=== PATIENT | male | born 1945 | race Caucasian/White ===

== ENCOUNTER → 2019-12-27 | Outpatient (CLI) | payer MEDICARE, OTHER ==
[~2019-12-27] MED LIST: ACET325 PO; ACTIVE-Q200 MG; ALBU90OI61 INH; ASPI325 PO; Budeprion Xl300 MG; Byetta10 MCG/0.0 SQ; CHOL10002; CLOBET30L TOP; CYCL10 PO; Celexa40 MG PO; Daily Multiple1 EACH PO; GLIM4; INSULANPEN SC; METF500C PO; Micardis Hct 81 EAC1 PO; SIMV40 PO; Simvastatin40 MG PO; TELM80
[2019-12-27 09:00] LABS: BASOPHILS ABSOLUTE AUTO 0.07 K/mm3 (0.00-0.23); BASOPHILS PERCENT AUTO 1 % (0-2); EOSINOPHILS ABSOLUTE AUTO 0.26 K/mm3 (0.00-0.68); EOSINOPHILS PERCENT AUTO 2 % (0-6); Hematocrit 38.9 % (37.0-53.0); Hemoglobin 13.3 g/dL (13.5-17.5); IMMATURE GRAN ABSOLUTE AUTO 0.14 K/mm3 (0.00-0.10); IMMATURE GRAN PERCENT AUTO 1 % (0-1); LYMPHOCYTES ABSOLUTE AUTO 2.16 K/mm3 (0.84-5.20); LYMPHOCYTES PERCENT AUTO 18 % (21-46); MONOCYTES ABSOLUTE AUTO 0.83 K/mm3 (0.16-1.47); MONOCYTES PERCENT AUTO 7 % (4-13); Mean Corpuscular HGB 31.7 pg (26.0-34.0); Mean Corpuscular HGB Conc 34.2 g/dL (31.5-36.5); Mean Corpuscular Volume 93 fL (80-100); Mean Platelet Volume 10.6 fL (9.1-12.4); NEUTROPHILS PERCENT AUTO 72 % (41-73); Platelet Count 271 K/mm3 (150-400); RDW Coefficient Variation 13.1 % (11.7-14.2); White Blood Cell Count 12.26 K/mm3 (4.00-11.30)
[2019-12-27 09:12] LABS: Alanine Aminotransfer (ALT/SGP 27 U/L (12-78); Albumin, Blood 3.8 g/dL (3.4-5.0); Albumin/Globulin Ratio 0.9 (0.8-1.8); Alk Phos 70 U/L (40-126); Anion Gap 10 mmol/L (6-16); Aspartate Aminotrans (AST/SGOT 17 U/L (12-37); Bilirubin, Total 0.5 mg/dL (0.1-1.0); Blood Urea Nitrogen 20 mg/dL (8-24); Bun/Creatinine Ratio 12.7 (12.0-20.0); CO2, Blood 30 mmol/L (21-32); Calcium, Blood 8.8 mg/dL (8.5-10.1); Chloride, Blood 100 mmol/L (98-108); Creatinine, Blood 1.58 mg/dL (0.60-1.20); Globulin, Blood 4.4 g/dL (2.2-4.0); Glomerular Filtration Rate 43 (60-); Glucose, Blood 189 mg/dL (70-99); Potassium, Blood 3.9 mmol/L (3.5-5.5); Sodium, Blood 140 mmol/L (136-145); Total Protein, Blood 8.2 g/dL (6.4-8.2)
[2019-12-27 09:13] LABS: Troponin I <0.017 ng/mL (0.000-0.040)
== END | disposition home or self-care (01) ==
LOC: LAB SHORT 08:54 → LAB EV 08:54
PROVIDERS: Physician Assistant
DX: R07.81 Pleurodynia (principal)
CPT/HCPCS: 80053; 84484; 85025; 85379

== ENCOUNTER 2020-07-19 19:33 | Inpatient (IN) | payer MEDICARE, OTHER ==
[~2020-07-19] VITALS: Ht 175.3 cm; Wt 101.4 kg
[2020-07-19 20:35] LABS: BASOPHILS PERCENT AUTO 1 % (0-2); EOSINOPHILS ABSOLUTE AUTO 0.21 K/mm3 (0.00-0.68); EOSINOPHILS PERCENT AUTO 1 % (0-6); Hematocrit 35.1 % (37.0-53.0); IMMATURE GRAN ABSOLUTE AUTO 0.17 K/mm3 (0.00-0.10); IMMATURE GRAN PERCENT AUTO 1 % (0-1); LYMPHOCYTES ABSOLUTE AUTO 1.01 K/mm3 (0.84-5.20); LYMPHOCYTES PERCENT AUTO 6 % (21-46); MONOCYTES ABSOLUTE AUTO 1.17 K/mm3 (0.16-1.47); MONOCYTES PERCENT AUTO 7 % (4-13); Mean Corpuscular HGB 32.2 pg (26.0-34.0); Mean Corpuscular HGB Conc 34.2 g/dL (31.5-36.5); Mean Corpuscular Volume 94 fL (80-100); Mean Platelet Volume 10.8 fL (9.1-12.4); NEUTROPHILS ABSOLUTE AUTO 14.18 K/mm3 (1.96-9.15); NEUTROPHILS PERCENT AUTO 84 % (41-73); Platelet Count 258 K/mm3 (150-400); RDW Coefficient Variation 12.5 % (11.7-14.2); RDW Standard Deviation 43.2 fL (35.1-46.3); Red Blood Cell Count 3.73 M/mm3 (4.30-5.90); White Blood Cell Count 16.84 K/mm3 (4.00-11.30)
[2020-07-19 20:56] LABS: Alanine Aminotransfer (ALT/SGP 27 U/L (12-78); Albumin, Blood 3.1 g/dL (3.4-5.0); Albumin/Globulin Ratio 0.9 (0.8-1.8); Alk Phos 55 U/L (50-136); Anion Gap 6 mmol/L (6-16); Aspartate Aminotrans (AST/SGOT 15 U/L (12-37); Bilirubin, Total 0.5 mg/dL (0.1-1.0); Blood Urea Nitrogen 18 mg/dL (8-24); CO2, Blood 23 mmol/L (21-32); Calcium, Blood 7.2 mg/dL (8.5-10.1); Chloride, Blood 110 mmol/L (98-108); Globulin, Blood 3.3 g/dL (2.2-4.0); Glomerular Filtration Rate >60 (60-); Glucose, Blood 148 mg/dL (70-99); Potassium, Blood 3.5 mmol/L (3.5-5.5); Sodium, Blood 139 mmol/L (136-145); Total Protein, Blood 6.4 g/dL (6.4-8.2)
[2020-07-19] MEDS ORDERED: Norco 5-325 Ta1 EACH PO (22:42)
[2020-07-19] MEDS ORDERED: IBUP600 PO (22:42)
[2020-07-20 00:15] LABS: Body Fluid Crystals POS (NEGATIVE)
[2020-07-20 00:18] LABS: Glucose, Body Fluid 8 mg/dL; Lactate Dehydrogenase, Body Fl 311 U/L
[2020-07-20 00:19] LABS: Protein, Body Fluid 4.7 g/dL
[2020-07-20 00:39] LABS: BODY FLUID RBC 0.002 M/mm3 (0-0); WBC Count, Synovial Fluid 8295 /mm3 (0-180)
[2020-07-20 00:44] LABS: Appearance, Synovial Fluid Hazy (Clear); Color, Synovial Fluid Yellow (None-P Yel); Eos, Synovial Fluid 1 % (0-2); Lymphs, Synovial Fluid 13 % (0-15); Monocytes/Macrophages, Synovia 1 % (0-65); Neutrophils, Synovial Fluid 85 % (0-24)
[2020-07-20] MEDS ORDERED: TRULICITY1.5 MG/0.1 SC (01:55)
[2020-07-20] MEDS ORDERED: REPA1 PO (01:56)
[2020-07-20] MEDS ORDERED: TRESIBA FL100 UNIT/2 SC (01:57)
[2020-07-20] MEDS ORDERED: CITA20 PO (01:58)
[2020-07-20] MEDS ORDERED: [UNRECOGNIZED DRUG - OTHER] PO (01:59)
[2020-07-20] MEDS ORDERED: TAMS.4ER PO (02:00)
[2020-07-20] MEDS ORDERED: BUPR100 PO (02:00)
[2020-07-20] MEDS ORDERED: PRAV20 PO (02:02)
[2020-07-20] MEDS ORDERED: UBIQUINOL100 MG (02:03)
[2020-07-20] MEDS ORDERED: Aspir 8181 MG PO (02:03)
--- NOTE | 2020-07-20 04:58 | NUR ---
SHIFT NGA- PT. NEW ADMIT FROM ED WITH SEPTIC LT KNEE ARTHRITIS. ARRIVED VIA STRETCHER AND TRANSFERRED ONTO BED BY NURSING STAFF. A&OX4, PLEASANT AND COOPERATIVE WITH CARE. ARTHROCENTESIS DONE IN THE ED, FLUID SENT TO LAB. LT KNEE AND ANKLE SWOLLEN. PT. STATES PAIN 12/31. ORTHOPEDIC DR. BRIGGS CONSULTED IN THE ER. PT. TO START IV ABX'S THIS AM AND ORTHO TO FOLLOW. PT. HAS BEEN SLEEPING QUIETLY IN BED, NO APPARENT DISTRESS NOTED. CALL LIGHT WITHIN REACH AND SIDE RAILS UPX2. WILL CONT TO MONITOR.
[2020-07-20 05:01] LABS: BASOPHILS ABSOLUTE AUTO 0.05 K/mm3 (0.00-0.23); BASOPHILS PERCENT AUTO 0 % (0-2); EOSINOPHILS ABSOLUTE AUTO 0.14 K/mm3 (0.00-0.68); EOSINOPHILS PERCENT AUTO 1 % (0-6); Hematocrit 33.3 % (37.0-53.0); Hemoglobin 11.2 g/dL (13.5-17.5); IMMATURE GRAN ABSOLUTE AUTO 0.14 K/mm3 (0.00-0.10); IMMATURE GRAN PERCENT AUTO 1 % (0-1); LYMPHOCYTES ABSOLUTE AUTO 1.84 K/mm3 (0.84-5.20); LYMPHOCYTES PERCENT AUTO 15 % (21-46); MONOCYTES ABSOLUTE AUTO 0.73 K/mm3 (0.16-1.47); MONOCYTES PERCENT AUTO 6 % (4-13); Mean Corpuscular HGB 31.7 pg (26.0-34.0); Mean Corpuscular HGB Conc 33.6 g/dL (31.5-36.5); Mean Corpuscular Volume 94 fL (80-100); NEUTROPHILS ABSOLUTE AUTO 9.29 K/mm3 (1.96-9.15); NEUTROPHILS PERCENT AUTO 76 % (41-73); Platelet Count 236 K/mm3 (150-400); RDW Coefficient Variation 12.6 % (11.7-14.2); RDW Standard Deviation 43.4 fL (35.1-46.3); Red Blood Cell Count 3.53 M/mm3 (4.30-5.90); White Blood Cell Count 12.19 K/mm3 (4.00-11.30)
[2020-07-20 05:29] LABS: Bun/Creatinine Ratio 15.6 (12.0-20.0); Calcium, Blood 8.1 mg/dL (8.5-10.1); Creatinine, Blood 1.41 mg/dL (0.60-1.20); Potassium, Blood 3.9 mmol/L (3.5-5.5)
--- NOTE | 2020-07-20 10:34 | NUR ---
BATHROOM PT CALLED STATING HE NEEDED TO USE THE RESTROOM, THIS RN SUGGESTED A COMMODE, PT REFUSED, PT SPOUSE SUGGESTED A COMMODE, PT REFUSED, PT ABLE TO STAND WITH ASSIST, USING THE WALKER PT MADE IT OVER TO THE BATHROOM DOOR, UNABLE TO BEAR WEIGHT ON HIS L LEG, PT ALSO WITH ISSUES USING HIS R LEG, IT WAS APPEARING TO DRAG AND NOT BEAR WEIGHT SUCCESSFULLY, PT SLOWLY WENT DOWN TO THE FLOOR WHILE STILL HOLDING ON TO THE WALKER AND HIS SPOUSE PLACING A PILLOW UNDER HIS KNEES, GRAIN ORIGINATION SPECIALIST NOTIFIED, VANDERLIFT/JOSEPH SLING NOT AVAILABLE AT THIS TIME, PT MANAGED TO GET HIMSELF INTO A SITTING POSITION ON THE FLOOR AND MULTIPLE RN'S ABLE TO ASSIST THE PT UP TO THE CHAIR WITH A GAIT BELT, PT THEN ABLE TO STAND PIVOT TRANSFER HIMSELF FROM THE CHAIR BACK INTO THE BED, BEDSIDE COMMODE BROUGHT TO THE ROOM, PT DENIES NEEDING TO USE IT AT THIS TIME, NO INJURIES, SPOUSE PRESENT DURING ENTIRE EVENT
--- NOTE | 2020-07-20 17:13 | NUR ---
SHIFT SUMMARY PT A/O X4, PLEASANT, AND COOPERATIVE WITH CARE. ADMITTED W/SEPTIC L KNEE ARTHRITIS. L LEG SWELLING PRESENT. PT HAD A NEAR FALL WHILE GETTING UP TO GO TO THE BA. PT WORKED WITH P.T. AND O.T. TODAY. WILL BE NPO AFTER MIDNIGHT FOR ANOTHER ORTHOPEDIC EVALUATION. VSS, LOW GRADE TEMPERATIVE PRESENT. HAS BEEN RESTING IN BED FOR MOST OF THE SHIFT. WILL CONTINUE TO MONITOR.
--- NOTE | 2020-07-21 04:49 | NUR ---
SUMMARY PT HAS DENIED PAIN THIS SHIFT. PT HAS BEEN VOIDING WELL. PT HAS SLEPT WELL THIS SHIFT. PT CURRENTLY AWAKE AND RESTING. NO FEVERS OR CHILLS REPORTED/ NOTED. CALL LIGHT IN REACH.
[2020-07-21 11:40] LABS: BASOPHILS ABSOLUTE AUTO 0.06 K/mm3 (0.00-0.23); BASOPHILS PERCENT AUTO 1 % (0-2); EOSINOPHILS ABSOLUTE AUTO 0.23 K/mm3 (0.00-0.68); EOSINOPHILS PERCENT AUTO 2 % (0-6); Hematocrit 33.2 % (37.0-53.0); Hemoglobin 11.2 g/dL (13.5-17.5); IMMATURE GRAN ABSOLUTE AUTO 0.08 K/mm3 (0.00-0.10); IMMATURE GRAN PERCENT AUTO 1 % (0-1); LYMPHOCYTES ABSOLUTE AUTO 1.34 K/mm3 (0.84-5.20); LYMPHOCYTES PERCENT AUTO 13 % (21-46); MONOCYTES ABSOLUTE AUTO 0.72 K/mm3 (0.16-1.47); MONOCYTES PERCENT AUTO 7 % (4-13); Mean Corpuscular HGB 32.2 pg (26.0-34.0); Mean Corpuscular HGB Conc 33.7 g/dL (31.5-36.5); Mean Corpuscular Volume 95 fL (80-100); Mean Platelet Volume 10.5 fL (9.1-12.4); NEUTROPHILS PERCENT AUTO 77 % (41-73); Platelet Count 231 K/mm3 (150-400); RDW Coefficient Variation 12.5 % (11.7-14.2); RDW Standard Deviation 42.9 fL (35.1-46.3); Red Blood Cell Count 3.48 M/mm3 (4.30-5.90); White Blood Cell Count 10.43 K/mm3 (4.00-11.30)
[2020-07-21 12:32] LABS: Creatinine, Blood 1.33 mg/dL (0.60-1.20); Vancomycin, Trough 15.5 ug/mL (5.0-10.0)
--- NOTE | 2020-07-21 18:51 | NUR ---
SHIFT SUMMARY PT IS ALERT AND ORIENTED X4, ABLE TO EXPRESS NEEDS. PT REPORTS THAT HIS KNEE SWELLING AND PAIN IS IMPROVED TODAY AND THAT HE IS ABLE TO PUT MORE WEIGHT ON IT WHEN AMBULATING. TODAY PT HAD MULTIPLE EPISODES OF DIARRHEA, ORDERS RECEIVED TO CHECK FOR C-DIFF AND PT WAS PLACED ON ENTERIC PRECAUTIONS PER PROTOCAL. SPECIMEN WAS COLLECTED BY [facility] AND SENT TO LAB THIS EVENING. TELEMETRY SHOWED PT TO BE IN SINUS RHYTHM PRIOR TO IT BEING D/C'D TODAY. VITALS HAVE REMAINED STABLE.
--- NOTE | 2020-07-22 04:42 | NUR ---
SHIFT SUMMARY A/O, ABLE TO MAKE NEEDS KNOWN. COOPERATIVE WITH CARE. CALLS AND ANSWERS QUESTIONS APPROPRIATELY. NO C/O PAIN/DISCOMFORT. APPEARED TO REST OFF AND ON OVERNIGHT. UP WITH 1P ASSIST TO BATHROOM. SHOWERED THIS EVENING. REPORT INCREASED SWELLING AND ERYTHEMA TO L ANKLE; WHICH UPON ASSESSMENT WAS WARM TO THE TOUCH. STATED THAT PRESENTATION HAS CONTINUED TO DECREASE IN SIZE. IV ABX INFUSED WITHOUT COMPLICATIONS. NO ACUTE CHANGES NOTED THIS SHIFT. VSS/AFEBRILE. BED REMAINS IN LOWEST POSITION. CALL LIGHT AND BELONGINGS WITHIN REACH. WCTM. REPORT TO ONCOMING RN.
[2020-07-22] MEDS ORDERED: ALLO100 PO (15:26)
[2020-07-22] MEDS ORDERED: COLCHICINE0.6 MG PO (15:27)
--- NOTE | 2020-07-22 17:38 | NUR ---
PATIENT DISCHARGED HOME IN THE COMPANY OF HIS . IV SALINE LOCK REMOVED WITHOUT INCIDENT. PATIENT RECEIVED EDUCATION ABOUT HIS NEW MEDICATIONS, TO WHICH HE VERBALIZED UNDERSTANDING. PATIENT OFF UNIT AT 1732 VIA W/C.
== END 2020-07-22 17:35 | disposition home or self-care (01) | DRG 554 ==
LOC: ER 19:33 → MEDS 19:34
PROVIDERS: Emergency Medicine; Internal Medicine; ADMIT Family Medicine
PROC: 0S9D3ZX Drainage of Left Knee Joint, Percutaneous Approach, Diagnostic (ICD-10-PCS; principal; 2020-07-19)
DX: M10.9 Gout, unspecified (principal); Z20.828 Contact with and (suspected) exposure to other viral communicable diseases; E78.5 Hyperlipidemia, unspecified; D63.8 Anemia in other chronic diseases classified elsewhere; M25.462 Effusion, left knee; E11.42 Type 2 diabetes mellitus with diabetic polyneuropathy; E66.9 Obesity, unspecified; R29.6 Repeated falls; F17.210 Nicotine dependence, cigarettes, uncomplicated; I10 Essential (primary) hypertension; E89.2 Postprocedural hypoparathyroidism; J44.9 Chronic obstructive pulmonary disease, unspecified; F32.9 Major depressive disorder, single episode, unspecified; Z66 Do not resuscitate; Z88.8 Allergy status to other drugs, medicaments and biological substances; Z88.5 Allergy status to narcotic agent; Z79.4 Long term (current) use of insulin; Z79.899 Other long term (current) drug therapy; Z68.31 Body mass index [BMI] 31.0-31.9, adult
CPT/HCPCS: 20610; 36415; 71045; 73610; 80048; 80053; 80202; 82565; 82945; 82947; 83605; 83615; 84157; 84550; 85025; 85651; 86140; 87040; 87070; 87075; 87205; 87493; 89051; 89060; 93005; 93010; 93971; 96365-59; 96375; 97110; 97116; 97162; 97166; 97530; 99285-25; A9270-GY; G0378; J1650; J1815; J2543; J3370; J7050; J7120; U0002

== ENCOUNTER → 2020-09-26 | Outpatient (CLI) | payer MEDICARE, OTHER ==
[~2020-09-26] MED LIST changes: +ALLO100 PO; +Aspir 8181 MG PO; +BUPR100 PO; +CITA20 PO; +COLCHICINE0.6 MG PO; +IBUP600 PO; +Norco 5-325 Ta1 EACH PO; +PRAV20 PO; +REPA1 PO; +TAMS.4ER PO; +TRESIBA FL100 UNIT/2 SC; +TRULICITY1.5 MG/0.1 SC; +UBIQUINOL100 MG; +[UNRECOGNIZED DRUG - OTHER] PO
== END | disposition home or self-care (01) ==
LOC: LAB EV 11:53 → LAB SHORT 11:53
DX: U07.1 COVID-19 (principal)
CPT/HCPCS: U0003

== ENCOUNTER 2020-12-15 11:08 | Emergency (ER) | payer MEDICARE, OTHER ==
[~2020-12-15] VITALS: Ht 172.7 cm; Wt 87.5 kg
[2020-12-15 12:07] LABS: BASOPHILS ABSOLUTE AUTO 0.08 K/mm3 (0.00-0.23); BASOPHILS PERCENT AUTO 1 % (0-2); EOSINOPHILS ABSOLUTE AUTO 0.17 K/mm3 (0.00-0.68); EOSINOPHILS PERCENT AUTO 1 % (0-6); Hematocrit 38.5 % (37.0-53.0); Hemoglobin 12.7 g/dL (13.5-17.5); IMMATURE GRAN ABSOLUTE AUTO 0.07 K/mm3 (0.00-0.10); IMMATURE GRAN PERCENT AUTO 1 % (0-1); LYMPHOCYTES ABSOLUTE AUTO 1.27 K/mm3 (0.84-5.20); LYMPHOCYTES PERCENT AUTO 11 % (21-46); MONOCYTES ABSOLUTE AUTO 0.57 K/mm3 (0.16-1.47); MONOCYTES PERCENT AUTO 5 % (4-13); Mean Corpuscular HGB 31.1 pg (26.0-34.0); Mean Corpuscular Volume 94 fL (80-100); Mean Platelet Volume 10.9 fL (9.1-12.4); NEUTROPHILS ABSOLUTE AUTO 9.91 K/mm3 (1.96-9.15); NEUTROPHILS PERCENT AUTO 82 % (41-73); Platelet Count 284 K/mm3 (150-400); RDW Coefficient Variation 13.1 % (11.7-14.2); RDW Standard Deviation 45.1 fL (35.1-46.3); Red Blood Cell Count 4.09 M/mm3 (4.30-5.90); White Blood Cell Count 12.07 K/mm3 (4.00-11.30)
[2020-12-15] MEDS ORDERED: ACET500 PO (12:16)
[2020-12-15] MEDS ORDERED: ASPI325 PO (12:16)
[2020-12-15] MEDS ORDERED: Aspir 8181 MG PO (12:19)
[2020-12-15] MEDS ORDERED: GABA300T24 PO (12:19)
[2020-12-15 12:20] LABS: Alanine Aminotransfer (ALT/SGP 24 U/L (12-78); Albumin, Blood 3.7 g/dL (3.4-5.0); Alk Phos 56 U/L (50-136); Anion Gap 8 mmol/L (6-16); Aspartate Aminotrans (AST/SGOT 18 U/L (12-37); Bilirubin, Total 0.3 mg/dL (0.1-1.0); Blood Urea Nitrogen 22 mg/dL (8-24); Bun/Creatinine Ratio 18.5 (12.0-20.0); CO2, Blood 29 mmol/L (21-32); Calcium, Blood 8.8 mg/dL (8.5-10.1); Chloride, Blood 105 mmol/L (98-108); Creatinine, Blood 1.19 mg/dL (0.60-1.20); Globulin, Blood 3.6 g/dL (2.2-4.0); Glomerular Filtration Rate >60 (60-); Glucose, Blood 67 mg/dL (70-99); Potassium, Blood 4.2 mmol/L (3.5-5.5); Sodium, Blood 142 mmol/L (136-145); Total Protein, Blood 7.3 g/dL (6.4-8.2); Troponin I <0.015 ng/mL (0.000-0.040)
[2020-12-15 14:32] LABS: Source, Urine Clean Catch
[2020-12-15 14:38] LABS: Appearance, Urine Turbid (Clear); Bilirubin, Urine Neg (Neg); Blood, Urine Neg (Neg); Color, Urine Yellow (P-Yellow); Glucose Qualitative, Urine Neg (Neg); Ketones, Urine Neg (Neg); Leukocyte Esterase, Urine 2+ (Neg); Nitrite, Urine Neg (Neg); Protein, Urine Neg (Neg); Specific Gravity, Urine 1.015 (1.003-1.022); Urobilinogen, Urine NORM (Normal)
[2020-12-15 14:45] LABS: Bacteria Few /hpf; Red Blood Cells, Urine 0-2 /hpf (0-2); Squamous Epithelial Cells Not Seen /hpf (Few)
== END 2020-12-15 15:28 | disposition home or self-care (01) ==
LOC: ER 11:08
PROVIDERS: Emergency Medicine
DX: R55 Syncope and collapse (principal); E11.9 Type 2 diabetes mellitus without complications; J44.9 Chronic obstructive pulmonary disease, unspecified; R03.1 Nonspecific low blood-pressure reading; F17.210 Nicotine dependence, cigarettes, uncomplicated; Z88.5 Allergy status to narcotic agent; Z88.8 Allergy status to other drugs, medicaments and biological substances; Z79.4 Long term (current) use of insulin; Z79.899 Other long term (current) drug therapy; Z79.82 Long term (current) use of aspirin
CPT/HCPCS: 36415; 70450; 71045; 80053; 81001; 84484; 85025; 87077; 87086; 87186; 93005; 93010; 99285-25; J7030

== ENCOUNTER → 2022-01-13 | Outpatient (CLI) | payer MEDICARE, OTHER ==
[~2022-01-13] MED LIST changes: +ACET500 PO; +GABA300T24 PO
[2022-01-13 15:02] LABS: Source, Urine Clean Catch
[2022-01-13 15:04] LABS: Bacteria Many /hpf; Red Blood Cells, Urine 25-50 /hpf (0-2); Squamous Epithelial Cells Rare /hpf (Few); White Blood Cells, Urine 50-100 /hpf (0-5)
[2022-01-13 16:06] LABS: BASOPHILS ABSOLUTE AUTO 0.05 K/mm3 (0.00-0.23); BASOPHILS PERCENT AUTO 1 % (0-2); EOSINOPHILS ABSOLUTE AUTO 0.03 K/mm3 (0.00-0.68); EOSINOPHILS PERCENT AUTO 0 % (0-6); Hematocrit 37.8 % (37.0-53.0); Hemoglobin 13.1 g/dL (13.5-17.5); IMMATURE GRAN ABSOLUTE AUTO 0.09 K/mm3 (0.00-0.10); IMMATURE GRAN PERCENT AUTO 1 % (0-1); LYMPHOCYTES ABSOLUTE AUTO 0.55 K/mm3 (0.84-5.20); LYMPHOCYTES PERCENT AUTO 5 % (21-46); MONOCYTES ABSOLUTE AUTO 0.38 K/mm3 (0.16-1.47); MONOCYTES PERCENT AUTO 4 % (4-13); Mean Corpuscular HGB Conc 34.7 g/dL (31.5-36.5); Mean Corpuscular Volume 92 fL (80-100); Mean Platelet Volume 10.9 fL (9.1-12.4); NEUTROPHILS ABSOLUTE AUTO 9.04 K/mm3 (1.96-9.15); NEUTROPHILS PERCENT AUTO 89 % (41-73); Platelet Count 190 K/mm3 (150-400); RDW Standard Deviation 43.6 fL (35.1-46.3); White Blood Cell Count 10.14 K/mm3 (4.00-11.30)
[2022-01-13 16:15] LABS: Albumin, Blood 3.8 g/dL (3.4-5.0); Albumin/Globulin Ratio 1.3 (0.8-1.8); Bilirubin, Total 0.5 mg/dL (0.1-1.0); Bun/Creatinine Ratio 18.6 (12.0-20.0); Calcium, Blood 8.5 mg/dL (8.5-10.1); Creatinine, Blood 1.61 mg/dL (0.60-1.20); Potassium, Blood 4.1 mmol/L (3.5-5.5); Total Protein, Blood 6.8 g/dL (6.4-8.2)
== END ==
LOC: LAB SHORT 14:58
PROVIDERS: Physician Assistant
DX: R31.9 Hematuria, unspecified (principal); I95.9 Hypotension, unspecified; R50.9 Fever, unspecified
CPT/HCPCS: 80053; 81015; 85025

== ENCOUNTER → 2022-10-27 | Outpatient (CLI) | payer MEDICARE, OTHER ==
[2022-10-27 09:10] LABS: BASOPHILS ABSOLUTE AUTO 0.12 K/mm3 (0.00-0.23); BASOPHILS PERCENT AUTO 1 % (0-2); EOSINOPHILS ABSOLUTE AUTO 0.33 K/mm3 (0.00-0.68); EOSINOPHILS PERCENT AUTO 3 % (0-6); Hematocrit 39.5 % (37.0-53.0); Hemoglobin 13.6 g/dL (13.5-17.5); IMMATURE GRAN ABSOLUTE AUTO 0.07 K/mm3 (0.00-0.10); IMMATURE GRAN PERCENT AUTO 1 % (0-1); LYMPHOCYTES ABSOLUTE AUTO 2.03 K/mm3 (0.84-5.20); LYMPHOCYTES PERCENT AUTO 19 % (21-46); MONOCYTES PERCENT AUTO 6 % (4-13); Mean Corpuscular HGB 31.9 pg (26.0-34.0); Mean Corpuscular HGB Conc 34.4 g/dL (31.5-36.5); Mean Corpuscular Volume 93 fL (80-100); Mean Platelet Volume 10.8 fL (9.1-12.4); NEUTROPHILS ABSOLUTE AUTO 7.73 K/mm3 (1.96-9.15); NEUTROPHILS PERCENT AUTO 70 % (41-73); Platelet Count 290 K/mm3 (150-400); RDW Coefficient Variation 12.7 % (11.7-14.2); Red Blood Cell Count 4.27 M/mm3 (4.30-5.90); White Blood Cell Count 10.98 K/mm3 (4.00-11.30)
[2022-10-27 09:30] LABS: Alanine Aminotransfer (ALT/SGP 21 U/L (12-78); Albumin, Blood 3.5 g/dL (3.4-5.0); Albumin/Globulin Ratio 1.1 (0.8-1.8); Alk Phos 60 U/L (50-136); Anion Gap 7 mmol/L (6-16); Aspartate Aminotrans (AST/SGOT 15 U/L (12-37); Bilirubin, Total 0.4 mg/dL (0.1-1.0); Blood Urea Nitrogen 22 mg/dL (8-24); Bun/Creatinine Ratio 16.9 (12.0-20.0); CHOL/HDL RATIO 3.7; CO2, Blood 28 mmol/L (21-32); Calcium, Blood 8.5 mg/dL (8.5-10.1); Chloride, Blood 106 mmol/L (98-108); Cholesterol 146 mg/dL (50-200); Globulin, Blood 3.3 g/dL (2.2-4.0); Glomerular Filtration Rate 57 (60-); Glucose, Blood 112 mg/dL (70-99); HDL Cholesterol 39 mg/dL (>39); LDL/HDL RATIO 2.2; Low Density Lipoprotein Chol 86 mg/dL (0-110); Potassium, Blood 3.9 mmol/L (3.5-5.5); Sodium, Blood 141 mmol/L (136-145); Total Protein, Blood 6.8 g/dL (6.4-8.2); Triglycerides 103 mg/dL (30-160); Very Low Density Lipoprot Chol 20 mg/dL (6-32)
== END | disposition home or self-care (01) ==
LOC: LAB SHORT 07:16 → LAB 07:16
PROVIDERS: Family Medicine
DX: E11.9 Type 2 diabetes mellitus without complications (principal); E78.2 Mixed hyperlipidemia
CPT/HCPCS: 36415; 80053; 80061; 83036; 85025

== ENCOUNTER → 2023-09-12 | Outpatient (CLI) | payer MEDICARE, OTHER | END | disposition home or self-care (01) | LOC: LAB SHORT 11:35 → LAB 11:35 | DX: N39.0 Urinary tract infection, site not specified (principal) | CPT/HCPCS: 87077; 87086; 87186 ==

== ENCOUNTER 2024-08-15 13:47 | Inpatient (IN) | payer MEDICARE, OTHER ==
[~2024-08-15] VITALS: Ht 172.7 cm; Wt 90.2 kg
[~2024-08-15 13:47] MED LIST changes: -CHOL10002; -REPA1 PO; +REPAGLINIDE1 MG PO; +VITAMIN D5000 UNIT PO
[2024-08-15] MEDS ORDERED: NS 1,000 ML IV SCH (14:05)
[2024-08-15 14:42] LABS: BASOPHILS ABSOLUTE AUTO 0.06 K/mm3 (0.00-0.23); BASOPHILS PERCENT AUTO 1 % (0-2); EOSINOPHILS ABSOLUTE AUTO 0.19 K/mm3 (0.00-0.68); EOSINOPHILS PERCENT AUTO 2 % (0-6); Hematocrit 35.3 % (37.0-53.0); Hemoglobin 11.9 g/dL (13.5-17.5); IMMATURE GRAN ABSOLUTE AUTO 0.04 K/mm3 (0.00-0.10); IMMATURE GRAN PERCENT AUTO 0 % (0-1); LYMPHOCYTES ABSOLUTE AUTO 2.17 K/mm3 (0.84-5.20); LYMPHOCYTES PERCENT AUTO 22 % (21-46); MONOCYTES ABSOLUTE AUTO 0.74 K/mm3 (0.16-1.47); MONOCYTES PERCENT AUTO 8 % (4-13); Mean Corpuscular HGB 31.6 pg (26.0-34.0); Mean Corpuscular HGB Conc 33.7 g/dL (31.5-36.5); Mean Corpuscular Volume 94 fL (80-100); Mean Platelet Volume 10.9 fL (9.1-12.4); NEUTROPHILS ABSOLUTE AUTO 6.65 K/mm3 (1.96-9.15); NEUTROPHILS PERCENT AUTO 68 % (41-73); Platelet Count 216 K/mm3 (150-400); RDW Coefficient Variation 13.2 % (11.7-14.2); RDW Standard Deviation 44.9 fL (35.1-46.3); Red Blood Cell Count 3.76 M/mm3 (4.30-5.90); White Blood Cell Count 9.85 K/mm3 (4.00-11.30)
[2024-08-15 14:58] LABS: Bun/Creatinine Ratio 17.5 (12.0-20.0); Calcium, Blood 9.2 mg/dL (8.5-10.1); Creatinine, Blood 1.2 mg/dL (0.60-1.20); Magnesium, Blood 1.8 mg/dL (1.6-2.4); Potassium, Blood 4.2 mmol/L (3.5-5.5)
[2024-08-15] MEDS ORDERED: Amlodipine Bes2.5 MG PO (15:53)
[2024-08-15] MEDS ORDERED: CELE100 PO (15:54)
[2024-08-15] MEDS ORDERED: FINA5 PO (15:55)
[2024-08-15] MEDS ORDERED: LOSA25 PO (15:56)
[2024-08-15] MEDS ORDERED: TIZA4 PO (15:58)
[2024-08-15] MEDS ORDERED: TRESIBA FL100 UNIT/2 SC (15:58)
[2024-08-15] MEDS ORDERED: Furosemide 10 MG/ML 4ML Vial IV ONE (16:30)
[2024-08-15] MEDS ORDERED: FLU VACC TS2024-25(6MOS UP)/PF 45 MCG/0.5 ML SYRINGE IM SCH (16:50)
[2024-08-15 18:19] VITALS: BP 125/90
--- NOTE | 2024-08-15 18:48 | NUR ---
SHIFT SUMMARY PT A&OX4, VSS, TRANSFERRED FROM [facility] TO BED W/ 1P ASSIST, TOLERATING PO, AND DENIED PAIN. PT ORIENTED TO ROOM AND CALL LIGHT. CALL LIGHT WITHIN REACH AND PT ABLE TO MAKE NEEDS KNOWN.
[2024-08-15 19:26] VITALS: BP 142/78
[2024-08-15] MEDS ORDERED: MELATONIN5 M1 PO (19:31)
[2024-08-15] MEDS ORDERED: Insulin Glargine-Yfgn 100 Unit/mL 3 ML SYR SC SCH (21:00)
[2024-08-15] MEDS ORDERED: Insulin Human Lispro 100 Units/ML 3ML Syringe SC SCH (21:00)
--- NOTE | 2024-08-16 03:49 | NUR ---
SHIFT SUMMARY 79 YR M ADMITTED ON 08/15/24. DNR. NO ACUTE CHANGES THIS SHIFT. PT TROPONIN LEVEL WENT UP SLIGHTLY FROM 109-119. CHARGE NURSE NOTIFIED. PT HAS NO C/O PAIN OR DISCOMFORT. HE CHOOSES NOT TO WEAR OXYGEN STATING HE DOES NOT WEAR IT AT HOME AND HE DOES NOT FEEL THAT HE NEEDS IT. DENIES SOB OR CHEST PAIN. O2 SATS ARE WNL. PT IS A&O X 4 AND COOPERATIVE WITH CARE. HE AMBULATES INDEPENDANTLY TO THE BATHROOM. GLARGINE ORDER WAS CHANGED FROM 30 U @ BEDTIME TO 10, THIS IS WHAT HE TAKES AT HOME. BED IN LOW POSITION AND CALL LIGHT IN REACH.
[2024-08-16 04:28] LABS: BASOPHILS ABSOLUTE AUTO 0.08 K/mm3 (0.00-0.23); BASOPHILS PERCENT AUTO 1 % (0-2); EOSINOPHILS ABSOLUTE AUTO 0.27 K/mm3 (0.00-0.68); EOSINOPHILS PERCENT AUTO 2 % (0-6); Hematocrit 35.6 % (37.0-53.0); Hemoglobin 12.1 g/dL (13.5-17.5); IMMATURE GRAN ABSOLUTE AUTO 0.05 K/mm3 (0.00-0.10); IMMATURE GRAN PERCENT AUTO 0 % (0-1); LYMPHOCYTES ABSOLUTE AUTO 1.92 K/mm3 (0.84-5.20); LYMPHOCYTES PERCENT AUTO 17 % (21-46); MONOCYTES ABSOLUTE AUTO 0.86 K/mm3 (0.16-1.47); MONOCYTES PERCENT AUTO 8 % (4-13); Mean Corpuscular HGB 31.7 pg (26.0-34.0); Mean Corpuscular Volume 93 fL (80-100); Mean Platelet Volume 10.7 fL (9.1-12.4); NEUTROPHILS ABSOLUTE AUTO 8.16 K/mm3 (1.96-9.15); NEUTROPHILS PERCENT AUTO 72 % (41-73); Platelet Count 227 K/mm3 (150-400); RDW Standard Deviation 44.7 fL (35.1-46.3); Red Blood Cell Count 3.82 M/mm3 (4.30-5.90); White Blood Cell Count 11.34 K/mm3 (4.00-11.30)
[2024-08-16 04:57] LABS: Albumin, Blood 3.6 g/dL (3.4-5.0); Albumin/Globulin Ratio 1.1 (0.8-1.8); Bilirubin, Total 0.6 mg/dL (0.1-1.0); Bun/Creatinine Ratio 15.8 (12.0-20.0); Calcium, Blood 8.8 mg/dL (8.5-10.1); Creatinine, Blood 1.33 mg/dL (0.60-1.20); Globulin, Blood 3.2 g/dL (2.2-4.0); Potassium, Blood 3.7 mmol/L (3.5-5.5); Total Protein, Blood 6.8 g/dL (6.4-8.2)
[2024-08-16 05:01] VITALS: BP 139/69
[2024-08-16 07:13] VITALS: BP 133/79
[2024-08-16] MEDS ORDERED: Citalopram Hydrobromide 20 MG Tab PO SCH (09:00)
[2024-08-16] MEDS ORDERED: DULoxetine HCL 60 MG Capsule DR PO SCH (09:00)
[2024-08-16] MEDS ORDERED: AmLODIPine Besylate 5 MG Tab PO SCH (09:00)
[2024-08-16] MEDS ORDERED: Enoxaparin 40 MG/0.4 ML SYR SC SCH (09:00)
[2024-08-16] MEDS ORDERED: Furosemide 10 MG/ML 4ML Vial IV SCH (09:00)
[2024-08-16] MEDS ORDERED: Finasteride 5 MG Tab PO SCH (09:00)
[2024-08-16] MEDS ORDERED: Losartan Potassium 25 MG Tab PO SCH (09:00)
[2024-08-16] MEDS ORDERED: BuPROPion HCl 100 MG Tab PO SCH (09:00)
[2024-08-16] MEDS ORDERED: Aspirin 81 MG Chew PO SCH (09:00)
[2024-08-16 15:02] VITALS: BP 127/78
--- NOTE | 2024-08-16 15:48 | NUR ---
MD NOTIFIED OF SPOUSE REQUEST TO ORDER BNP AND LIPASE LAB DRAW. SPOUSE ALSO REQUESTED TO ORDER CONTINUOUS PULSE OX NIGHTLY. MD STATED WILL ORDER.
[2024-08-16] MEDS ORDERED: Tamsulosin HCl 0.4 MG Cap PO SCH (18:00)
--- NOTE | 2024-08-16 18:09 | NUR ---
SHIFT SUMMARY PATIENT A/OX4, ABLE TO MAKE NEEDS KNOWN. INDEPENDENT IN ROOM WITH FOUR WHEELED WALKER. RIGHT AC PIV DRESSING CHANGED THIS MORNING. PATIENT WIHT HOME CPAP AT BEDSIDE AND NEW ORDER FOR CONTINUOUS PULSE OX NIGHTLY PER SPOUSE, [facility], REQUEST. BNP AND LIPASE BLOOD DRAWS ALSO COMP-LETED PER [facility]'S REQUEST. TELEMETRY IN PLACE WITH NO EVENTS THIS SHIFT. PATIENT CONTINUES WITH DYSPNEA WITH EXERTION. ECHOCARDIOGRAM COMPLETED THIS MORNING, EF 20-25%. TRIPONIN LABS TRENDING DOWN. NO OTHER CONCERNS AT THIS TIME.
[2024-08-16] MEDS ORDERED: Insulin Glargine-Yfgn 100 Unit/mL 3 ML SYR SC SCH (21:00)
[2024-08-17 03:28] VITALS: BP 118/78
--- NOTE | 2024-08-17 03:29 | NUR ---
SHIFT SUMMARY 79 YR M ADMITTED ON 08/16/24. DNR. NO ACUTE CHANGES THIS SHIFT. NO C/O PAIN OR DISCOMFORT THIS SHIFT. O2 HAS STAYED IN MID 90'S ALL SHIFT DESPITE PT NOT WEARING HIS CPAP. NO ADVERSE EVENTS REPORTED BY R D INTERN. PT IS PLEASANT AND COOPERATIVE WITH CARE. HE IS A&O X 4 AND INDEPENDANT IN THE ROOM. ABLE TO MAKE NEEDS KNOWN. BED IN LOW POSITION AND CALL LIGHT IN REACH.
[2024-08-17 05:28] LABS: BASOPHILS PERCENT AUTO 1 % (0-2); EOSINOPHILS ABSOLUTE AUTO 0.23 K/mm3 (0.00-0.68); EOSINOPHILS PERCENT AUTO 2 % (0-6); Hematocrit 37.3 % (37.0-53.0); Hemoglobin 12.7 g/dL (13.5-17.5); IMMATURE GRAN PERCENT AUTO 1 % (0-1); LYMPHOCYTES ABSOLUTE AUTO 2.15 K/mm3 (0.84-5.20); LYMPHOCYTES PERCENT AUTO 15 % (21-46); MONOCYTES ABSOLUTE AUTO 1.16 K/mm3 (0.16-1.47); MONOCYTES PERCENT AUTO 8 % (4-13); Mean Corpuscular HGB 31.3 pg (26.0-34.0); Mean Corpuscular Volume 92 fL (80-100); Mean Platelet Volume 11.6 fL (9.1-12.4); NEUTROPHILS ABSOLUTE AUTO 10.32 K/mm3 (1.96-9.15); NEUTROPHILS PERCENT AUTO 73 % (41-73); Platelet Count 251 K/mm3 (150-400); RDW Coefficient Variation 12.8 % (11.7-14.2); RDW Standard Deviation 42.9 fL (35.1-46.3); Red Blood Cell Count 4.06 M/mm3 (4.30-5.90); White Blood Cell Count 14.06 K/mm3 (4.00-11.30)
[2024-08-17 05:58] LABS: Bun/Creatinine Ratio 16.5 (12.0-20.0); Creatinine, Blood 1.27 mg/dL (0.60-1.20); Potassium, Blood 3.7 mmol/L (3.5-5.5)
[2024-08-17 07:19] VITALS: BP 127/78
[2024-08-17] MEDS ORDERED: Budeprion Xl300 MG PO (12:42)
[2024-08-17] MEDS ORDERED: Aminophylline 250MG / 10ML 10 ML Vial ONE (13:58)
[2024-08-17] MEDS ORDERED: Regadenoson 0.4 MG/5 ML SYRINGE ONE (13:58)
[2024-08-17 16:32] VITALS: BP 116/67
--- NOTE | 2024-08-17 17:18 | NUR ---
SHIFT SUMMARY PATIENT A/OX4, ABLE TO MAKE NEEDS KNOWN. PATIENT WITH STRESS TEST TODAY. TELEMETRY IN PLACE, 5 BEATS OF VTACH THIS AM, NO OTHER EVENTS NOTED. , [facility], AT BEDSIDE ALL SHIFT. NO OTHER CONCERNS AT THIS TIME.
[2024-08-18 02:22] VITALS: BP 98/68
--- NOTE | 2024-08-18 04:16 | NUR ---
PT ALERT AND ORIENTED X4. FAMILY AT BEDSIDE AT SHIFT CHANGE. OOB UP TO BR WIH STANDBY ASSIST. USING WALKER, GAIT STEADY. PT RESTED QUIETLY THROUGH THE NIGHT.
[2024-08-18 05:25] LABS: BASOPHILS ABSOLUTE AUTO 0.07 K/mm3 (0.00-0.23); BASOPHILS PERCENT AUTO 1 % (0-2); EOSINOPHILS ABSOLUTE AUTO 0.23 K/mm3 (0.00-0.68); EOSINOPHILS PERCENT AUTO 2 % (0-6); Hematocrit 36.8 % (37.0-53.0); Hemoglobin 12.4 g/dL (13.5-17.5); IMMATURE GRAN ABSOLUTE AUTO 0.13 K/mm3 (0.00-0.10); IMMATURE GRAN PERCENT AUTO 1 % (0-1); LYMPHOCYTES ABSOLUTE AUTO 1.62 K/mm3 (0.84-5.20); LYMPHOCYTES PERCENT AUTO 12 % (21-46); MONOCYTES PERCENT AUTO 9 % (4-13); Mean Corpuscular HGB 31.2 pg (26.0-34.0); Mean Corpuscular HGB Conc 33.7 g/dL (31.5-36.5); Mean Corpuscular Volume 93 fL (80-100); Mean Platelet Volume 11.3 fL (9.1-12.4); NEUTROPHILS ABSOLUTE AUTO 9.84 K/mm3 (1.96-9.15); NEUTROPHILS PERCENT AUTO 75 % (41-73); Platelet Count 231 K/mm3 (150-400); RDW Coefficient Variation 12.8 % (11.7-14.2); RDW Standard Deviation 43.8 fL (35.1-46.3); Red Blood Cell Count 3.97 M/mm3 (4.30-5.90); White Blood Cell Count 13.09 K/mm3 (4.00-11.30)
[2024-08-18 05:42] LABS: Albumin, Blood 3.5 g/dL (3.4-5.0); Albumin/Globulin Ratio 1.1 (0.8-1.8); Bilirubin, Total 0.7 mg/dL (0.1-1.0); Bun/Creatinine Ratio 16.8 (12.0-20.0); Calcium, Blood 8.8 mg/dL (8.5-10.1); Creatinine, Blood 1.37 mg/dL (0.60-1.20); Globulin, Blood 3.3 g/dL (2.2-4.0); Potassium, Blood 3.8 mmol/L (3.5-5.5); Total Protein, Blood 6.8 g/dL (6.4-8.2)
[2024-08-18 07:42] VITALS: BP 137/98
[2024-08-18] MEDS ORDERED: Metoprolol Succinate 25 MG TABCR PO SCH (09:00)
--- NOTE | 2024-08-18 09:00 | NUR ---
pt laying in bed, at bedside, a/ox4, [place], states his short term memory is not working, pleasant and cooperative with care, follows commands well, denies pain at this time, lungs are clear t/o, resp even and unlabored, no cough noted, hrr, tele in place running sr in the 80's, no edema noted, ppp faint, cap refill <3 sec, vs stable, afebrile, piv to rac, site is clear and patent, btx4, abd flat soft nontender, voids without diff, skin c/w/d, maew, juana, uses a walker to ambulate, call light in reach.
[2024-08-18] MEDS ORDERED: Empagliflozin 10 MG TAB PO SCH (13:00)
[2024-08-18 15:56] VITALS: BP 127/74
[2024-08-18] MEDS ORDERED: Furosemide 10 MG/ML 4ML Vial IV SCH (18:00)
--- NOTE | 2024-08-18 19:38 | NUR ---
pt has denied pain throughout the day, at bedside most of the day. no acute changes this shift. call light in reach.
[2024-08-18 19:42] VITALS: BP 115/70
[2024-08-19 02:10] VITALS: BP 105/79
[2024-08-19 05:37] LABS: BASOPHILS ABSOLUTE AUTO 0.09 K/mm3 (0.00-0.23); BASOPHILS PERCENT AUTO 1 % (0-2); EOSINOPHILS ABSOLUTE AUTO 0.15 K/mm3 (0.00-0.68); EOSINOPHILS PERCENT AUTO 1 % (0-6); Hematocrit 37.1 % (37.0-53.0); Hemoglobin 12.7 g/dL (13.5-17.5); IMMATURE GRAN ABSOLUTE AUTO 0.09 K/mm3 (0.00-0.10); IMMATURE GRAN PERCENT AUTO 1 % (0-1); LYMPHOCYTES ABSOLUTE AUTO 1.83 K/mm3 (0.84-5.20); LYMPHOCYTES PERCENT AUTO 12 % (21-46); MONOCYTES PERCENT AUTO 9 % (4-13); Mean Corpuscular HGB 31.7 pg (26.0-34.0); Mean Corpuscular HGB Conc 34.2 g/dL (31.5-36.5); Mean Corpuscular Volume 93 fL (80-100); Mean Platelet Volume 11.7 fL (9.1-12.4); NEUTROPHILS ABSOLUTE AUTO 11.53 K/mm3 (1.96-9.15); NEUTROPHILS PERCENT AUTO 76 % (41-73); Platelet Count 248 K/mm3 (150-400); RDW Coefficient Variation 12.8 % (11.7-14.2); RDW Standard Deviation 43.2 fL (35.1-46.3); Red Blood Cell Count 4.01 M/mm3 (4.30-5.90); White Blood Cell Count 15.09 K/mm3 (4.00-11.30)
[2024-08-19 06:10] LABS: Bun/Creatinine Ratio 19.6 (12.0-20.0); Creatinine, Blood 1.48 mg/dL (0.60-1.20); Potassium, Blood 3.5 mmol/L (3.5-5.5)
--- NOTE | 2024-08-19 06:40 | NUR ---
NO ACUTE CHANGES DURING SHIFT. NOT MUCH SLEEP, INTERMITTENT, DECLINED CPAP.
[2024-08-19 07:36] VITALS: BP 151/89
[2024-08-19] MEDS ORDERED: buPROPion HCL 150 MG TAB.SR.12H PO SCH (09:00)
--- NOTE | 2024-08-19 09:00 | NUR ---
pt laying in bed, at bedside, a/ox4, [place], states he can't remember his po meds, pleasant and coopertive with care, follows commands well, denies pain except some tenderness in his left knee when he ambulates, lungs are clear t/o, resp even and unlabored, no cough noted, on r/a, hrr, tele in place running sr per monitor, see strip, no edema noted, ppp+1, cap refill <3 sec, vs stable, afebrile, piv to rac site is clear and patent, btx4, abd flat soft nontender, voids without diff, skin c/w/d, maew, juana, call light in reach.
--- NOTE | 2024-08-19 14:05 | NUR ---
CALL FROM CT REGARDING NEWLY ORDERED CHEST CT c CONTRAST. REQUESTING FOR CT WITH CONTRAST TOMORROW OR WITHOUT CONTRAST TODAY PATIENT HAS ALREADY BEEN INJECTED WITH CONTRAST TODAY. LEFT VOICEMAIL FOR DR. BIANCHI REQUESTING CALL BACK.
[2024-08-19] MEDS ORDERED: CefTRIAXone Sodium 1,000 MG in NS 100 ML IV SCH (16:00)
[2024-08-19 16:56] VITALS: BP 126/72
[2024-08-19 17:42] LABS: Source, Urine Clean Catch
[2024-08-19 17:49] LABS: Appearance, Urine Clear (Clear); Bilirubin, Urine Neg (Neg); Blood, Urine Neg (Neg); Color, Urine Pale Yellow (P-Yellow); Glucose Qualitative, Urine 4+ (Neg); Ketones, Urine Neg (Neg); Leukocyte Esterase, Urine Neg (Neg); Nitrite, Urine Neg (Neg); Protein, Urine Neg (Neg); Specific Gravity, Urine 1.015 (1.003-1.022); Urobilinogen, Urine NORM (Normal)
--- NOTE | 2024-08-19 18:06 | NUR ---
pt had an good day, had several studies done, at bedside throughout the day, no acute changes, his only complaint of pain is his knee. call light in reach.
[2024-08-19 19:17] LABS: Adenovirus Not Detected (NOT DETECT); Bordetella pertussis Not Detected (NOT DETECT); Chlamydophila pneumoniae Not Detected (NOT DETECT); Coronavirus 229E Not Detected (NOT DETECT); Coronavirus HKU1 Not Detected (NOT DETECT); Coronavirus NL63 Not Detected (NOT DETECT); Coronavirus OC43 Not Detected (NOT DETECT); Human Metapneumovirus Not Detected (NOT DETECT); Human Rhinovirus/Enterovirus Not Detected (NOT DETECT); Influenza A/2009-H1 Not Detected (NOT DETECT); Influenza A/H1 Not Detected (NOT DETECT); Influenza A/H3 Not Detected (NOT DETECT); Influenza B Not Detected (NOT DETECT); Mycoplasma pneumoniae Not Detected (NOT DETECT); Parainfluenza Virus 1 Not Detected (NOT DETECT); Parainfluenza Virus 2 Not Detected (NOT DETECT); Parainfluenza Virus 3 Not Detected (NOT DETECT); Parainfluenza Virus 4 Not Detected (NOT DETECT); Respiratory Syncytial Virus Not Detected (NOT DETECT); SARS-Cov-2 (COVID-19), BioFire Not Detected (NOT DETECT)
[2024-08-19 19:36] VITALS: BP 119/72
[2024-08-19] MEDS ORDERED: Azithromycin 500 MG in NS 250 ML IV ONE (22:40)
[2024-08-19] MEDS ORDERED: NS 500 ML IV ONE (23:21)
[2024-08-19] MEDS ORDERED: NS 250 ML IV PRN (23:45)
--- NOTE | 2024-08-20 02:37 | NUR ---
PT OOB UP TO BR WITH ASSIST AT SHIFT CHANGE WITH ASSIST AND WALKER . AT BEDSIDE. PT DENIED C/O AT SHIFT CHANGE. PT RESTING QUIETLY INTERMITTENTLY. PT AWAKE ALERT, AND ORIENTED X4 AT THIS TIME. PT TAKING PO WELL. NO DISTRESS NOTED.
[2024-08-20 03:33] VITALS: BP 118/67
[2024-08-20 05:06] LABS: BASOPHILS ABSOLUTE AUTO 0.08 K/mm3 (0.00-0.23); BASOPHILS PERCENT AUTO 1 % (0-2); EOSINOPHILS ABSOLUTE AUTO 0.17 K/mm3 (0.00-0.68); EOSINOPHILS PERCENT AUTO 1 % (0-6); Hematocrit 35.6 % (37.0-53.0); Hemoglobin 11.9 g/dL (13.5-17.5); IMMATURE GRAN PERCENT AUTO 1 % (0-1); LYMPHOCYTES ABSOLUTE AUTO 1.74 K/mm3 (0.84-5.20); LYMPHOCYTES PERCENT AUTO 13 % (21-46); MONOCYTES ABSOLUTE AUTO 1.27 K/mm3 (0.16-1.47); MONOCYTES PERCENT AUTO 9 % (4-13); Mean Corpuscular HGB 30.9 pg (26.0-34.0); Mean Corpuscular HGB Conc 33.4 g/dL (31.5-36.5); Mean Corpuscular Volume 93 fL (80-100); Mean Platelet Volume 11.6 fL (9.1-12.4); NEUTROPHILS ABSOLUTE AUTO 10.22 K/mm3 (1.96-9.15); NEUTROPHILS PERCENT AUTO 75 % (41-73); Platelet Count 240 K/mm3 (150-400); RDW Coefficient Variation 12.8 % (11.7-14.2); RDW Standard Deviation 43.8 fL (35.1-46.3); Red Blood Cell Count 3.85 M/mm3 (4.30-5.90); White Blood Cell Count 13.58 K/mm3 (4.00-11.30)
[2024-08-20 05:34] LABS: Albumin, Blood 3.5 g/dL (3.4-5.0); Albumin/Globulin Ratio 0.9 (0.8-1.8); Bilirubin, Total 0.5 mg/dL (0.1-1.0); Bun/Creatinine Ratio 21.4 (12.0-20.0); Creatinine, Blood 1.73 mg/dL (0.60-1.20); Globulin, Blood 3.7 g/dL (2.2-4.0); Potassium, Blood 3.7 mmol/L (3.5-5.5); Total Protein, Blood 7.2 g/dL (6.4-8.2)
[2024-08-20 07:25] VITALS: BP 117/81
[2024-08-20 14:43] VITALS: BP 113/74
[2024-08-20 19:26] VITALS: BP 123/70
--- NOTE | 2024-08-20 19:47 | NUR ---
SHIFT SUMMARY. PATIENT IS A&OX4. PATIENT UP INDEPENDENTLY WITH TO THE BATHROOM USING FOUR WHEELED WALKER. PATIENT RECEIVING IV ABX. PATIENTS AND ASKING "WHAT THE TIME LINE FOR THE HOSPITAL STAY IS" AND "WHERE "[facility]" NEEDS TO BE TO GO HOME AND FINISH RECOVER AT HOME". THIS RN TALKED TO , DOCTOR ASKED THIS RN TO TEXT HIM ANNY MARCIAL, GOT APPRROVAL FROM [facility], SENT PATIENTS NUMBER-DR. ROGERS TO CONTACT [facility] AND DISCUSS. PATIENT IS PLEASANT AND COOPERATIVE WITH CARE. BED IS LOCKED IN THE LOWEST POSITION WITH CALL LIGHT IN REACH. REPORT GIVEN TO COILER NURSE SOUMYA.
[2024-08-20] MEDS ORDERED: Insulin Glargine-Yfgn 100 Unit/mL 3 ML SYR SC SCH (21:00)
[2024-08-21 00:31] VITALS: BP 118/73
[2024-08-21] MEDS ORDERED: FentaNYL Citrate 50 MCG/ML 2 ML Injection IV PRN (01:20)
[2024-08-21] MEDS ORDERED: Melatonin 5 MG Tablet PO PRN (01:35)
[2024-08-21] MEDS ORDERED: Acetaminophen 325 MG TABLET PO PRN (01:35)
[2024-08-21] MEDS ORDERED: Melatonin 3 MG Tab PO PRN (01:57)
[2024-08-21 02:31] VITALS: BP 132/71
[2024-08-21 04:42] LABS: BASOPHILS ABSOLUTE AUTO 0.08 K/mm3 (0.00-0.23); BASOPHILS PERCENT AUTO 1 % (0-2); EOSINOPHILS PERCENT AUTO 3 % (0-6); Hematocrit 33.8 % (37.0-53.0); Hemoglobin 11.4 g/dL (13.5-17.5); IMMATURE GRAN ABSOLUTE AUTO 0.07 K/mm3 (0.00-0.10); IMMATURE GRAN PERCENT AUTO 1 % (0-1); LYMPHOCYTES PERCENT AUTO 17 % (21-46); MONOCYTES PERCENT AUTO 9 % (4-13); Mean Corpuscular HGB 31.1 pg (26.0-34.0); Mean Corpuscular HGB Conc 33.7 g/dL (31.5-36.5); Mean Corpuscular Volume 92 fL (80-100); Mean Platelet Volume 11.3 fL (9.1-12.4); NEUTROPHILS PERCENT AUTO 70 % (41-73); Platelet Count 243 K/mm3 (150-400); RDW Coefficient Variation 12.7 % (11.7-14.2); RDW Standard Deviation 43.4 fL (35.1-46.3); Red Blood Cell Count 3.66 M/mm3 (4.30-5.90); White Blood Cell Count 11.85 K/mm3 (4.00-11.30)
--- NOTE | 2024-08-21 04:43 | NUR ---
PT C/O CHEST PAIN. EKG AQUIRED. MD NOTIFIED, ORDERS FOR FENTANYL RECEIVED. PT STATED, "I DONT NEED NARCOTICS. " MD NOTIFIED AND ORDERS RECEIVED FOR TYLENOL AND MELAONIN.PT MEDICATED PER MD ORDERS.
[2024-08-21 06:39] LABS: Albumin, Blood 3.2 g/dL (3.4-5.0); Albumin/Globulin Ratio 0.9 (0.8-1.8); Bilirubin, Total 0.4 mg/dL (0.1-1.0); Bun/Creatinine Ratio 24.1 (12.0-20.0); Calcium, Blood 9.1 mg/dL (8.5-10.1); Creatinine, Blood 1.58 mg/dL (0.60-1.20); Globulin, Blood 3.6 g/dL (2.2-4.0); Potassium, Blood 3.8 mmol/L (3.5-5.5); Total Protein, Blood 6.8 g/dL (6.4-8.2)
[2024-08-21 07:15] VITALS: BP 115/68
[2024-08-21] MEDS ORDERED: Misc. Injectable SC SCH (12:45)
[2024-08-21 14:46] VITALS: BP 116/68
--- NOTE | 2024-08-21 18:32 | NUR ---
ALERT AND ORIENTED, HELPFUL AT BEDSIDE, MEDICATED WITH TYLENOL FOR LEFT FLANK PAIN, PATIENT AND REFUSED OPOIDS AND NARCOTICS DUE TO PATIENT BEING VERY SENSITIVE TO THEM AND BECOMES VERY CONFUSED AND HALLUCINATES. SHOWERED TODAY, CALL LIGHT WITH IN REACH, WILL RELAY TO PM RN
[2024-08-21 20:21] VITALS: BP 130/83
[2024-08-21] MEDS ORDERED: Tamsulosin HCl 0.4 MG Cap PO SCH (21:00)
[2024-08-22 03:34] VITALS: BP 158/102
--- NOTE | 2024-08-22 03:47 | NUR ---
FAMILY AT BEDSIDE AT SHIFTCHANGE. PT ALERT AND ORIENTED X4. PT DENIES C/O. AFFECT PLEASANT. NO DISTRESS NOTE. PT OOB UP TO BR WITH ASSIST. AMBULATING WELL WITH WALKER.
[2024-08-22 04:27] VITALS: BP 131/78
[2024-08-22 07:08] VITALS: BP 120/73
[2024-08-22] MEDS ORDERED: ASPI81CH PO (13:02)
[2024-08-22] MEDS ORDERED: JARDIANCE10 MG PO (13:03)
[2024-08-22] MEDS ORDERED: TOPROL XL25 MG PO (13:04)
[2024-08-22] MEDS ORDERED: CEFD300 PO (13:05)
--- NOTE | 2024-08-22 15:54 | NUR ---
PATIENT DISCHARGED HOME, INSTRUCTIONS GIVEN TO PATIENT, , AND DAUGHTER. ALL STATED UNDERSTANDING AND DENEID FURTHER QUESTIONS, MEDICATIONS FAXED TO [facility]
== END 2024-08-22 14:51 | disposition home or self-care (01) | DRG 291 ==
LOC: ER 13:47 → MEDS 13:48 → ENPENDDIS 08-22 13:27 → MEDS 08-22 14:51
PROVIDERS: Emergency Medicine; Internal Medicine; ADMIT Internal Medicine
DX: I13.0 Hypertensive heart and chronic kidney disease with heart failure and stage 1 through stage 4 chronic kidney disease, or unspecified chronic kidney disease (principal); I50.23 Acute on chronic systolic (congestive) heart failure; J18.9 Pneumonia, unspecified organism; F03.94 Unspecified dementia, unspecified severity, with anxiety; I24.89 Other forms of acute ischemic heart disease; J44.0 Chronic obstructive pulmonary disease with (acute) lower respiratory infection; F32.A Depression, unspecified; Z66 Do not resuscitate; J98.6 Disorders of diaphragm; E03.9 Hypothyroidism, unspecified; I42.0 Dilated cardiomyopathy; N18.30 Chronic kidney disease, stage 3 unspecified; E11.22 Type 2 diabetes mellitus with diabetic chronic kidney disease; N40.0 Benign prostatic hyperplasia without lower urinary tract symptoms; E11.42 Type 2 diabetes mellitus with diabetic polyneuropathy; F17.210 Nicotine dependence, cigarettes, uncomplicated; Z88.8 Allergy status to other drugs, medicaments and biological substances; Z79.82 Long term (current) use of aspirin; Z79.4 Long term (current) use of insulin; Z79.899 Other long term (current) drug therapy; Z96.651 Presence of right artificial knee joint; Z90.49 Acquired absence of other specified parts of digestive tract; Z98.42 Cataract extraction status, left eye; Z98.41 Cataract extraction status, right eye; Z86.73 Personal history of transient ischemic attack (TIA), and cerebral infarction without residual deficits; Z98.52 Vasectomy status; R10.9 Unspecified abdominal pain; R06.00 Dyspnea, unspecified; R91.8 Other nonspecific abnormal finding of lung field; J98.4 Other disorders of lung
CPT/HCPCS: 0202U; 36415; 71045; 71046; 71250; 74022; 74177; 78452; 80048; 80053; 81003; 82947; 83690; 83735; 83880; 84145; 84484; 85025; 85379; 93005; 93010; 93017; 94761; 94762; 96372; 96374; 96376; 97110; 97116; 97161; 97530; 99285-25; A9270; A9500; C8929; G0378; J0280; J0456; J0696; J1650; J1815; J1940; J2785; J7040; J7050; Q9957; Q9967

== ENCOUNTER 2025-10-24 14:57 | Observation (INO) | payer MEDICARE, OTHER ==
[~2025-10-24] VITALS: Ht 172.7 cm; Wt 88.2 kg
[~2025-10-24 14:57] MED LIST changes: -Bisoprolol Fumar5 MG PO; -CLOBETASOL EMOL15 G1 TOP; -Cefpodoxime Pr100 MG PO; -ENTRESTO 24 MG1 EACH PO; -FURO20 PO
[2025-10-24 16:28] VITALS: BP 138/69
[2025-10-24] MEDS ORDERED: FLU VACC TS2025(65UP)/MF59C/PF 45 MCG/0.5 ML SYRINGE IM SCH (16:30)
[2025-10-24] MEDS ORDERED: Insulin Human Lispro 100 Units/ML 3ML Syringe SC SCH (16:30)
[2025-10-24] MEDS ORDERED: ACET500 PO ×2 (17:01)
[2025-10-24] MEDS ORDERED: ENTRESTO 24 MG1 EACH PO ×2 (17:04)
[2025-10-24] MEDS ORDERED: FURO20 PO ×2 (17:06)
[2025-10-24] MEDS ORDERED: Bisoprolol Fumar5 MG PO ×2 (17:10)
[2025-10-24] MEDS ORDERED: CLOBETASOL EMOL15 G1 TOP ×2 (17:14)
[2025-10-24] MEDS ORDERED: CefTRIAXone Sodium 1,000 MG in NS 100 ML IV ONE (18:10)
[2025-10-24] MEDS ORDERED: NS 250 ML IV PRN (18:10)
--- NOTE | 2025-10-24 18:11 | NUR ---
NOTE: CONTACTED BY JENY HANNAH, THE PT DID NOT RECEIVE A DOSE OF ROCEPHIN WHILE AT THEIR CLINIC. HOSPITALIST CONTACTED AND ONE DOSE OF ROCEPHIN IS ORDERED FOR NOW. PT MADE AWARE AND AGREEABLE.
[2025-10-24 18:21] LABS: Anion Gap 7.0 mmol/L (3-11); Blood Urea Nitrogen 35.0 mg/dL (8-24); CO2, Blood 25.0 mmol/L (21-32); Calcium, Blood 8.5 mg/dL (8.5-10.1); Chloride, Blood 108.0 mmol/L (98-108); Creatinine, Blood 1.48 mg/dL (0.60-1.20); Glucose, Blood 202.0 mg/dL (70-99); Potassium, Blood 4.0 mmol/L (3.5-5.5); Sodium, Blood 136.0 mmol/L (136-145)
--- NOTE | 2025-10-24 18:30 | NUR ---
RN SHIFT SUMMARY: PT IS DNR A&Ox4, AT BEDSIDE, PT TRANSFER FROM [facility], RECEVING IV ANTIBIOTICS, SBA WITH FWW, BED IN LOWEST POSITION, CALL LIGHT WITHIN REACH
[2025-10-24 20:29] VITALS: BP 145/84
[2025-10-24] MEDS ORDERED: Budeprion Xl300 MG PO (22:08)
[2025-10-24] MEDS ORDERED: Insulin Glargine-Yfgn 100 Unit/mL 3 ML SYR SC SCH (23:00)
[2025-10-25] VITALS: BP 117/76
[2025-10-25 03:37] VITALS: BP 132/71
--- NOTE | 2025-10-25 06:18 | NUR ---
DOLL WIG MAKER ROOTED HAIR SUMMARY PT A&OX4, VSS. ABLE TO COMMUNICATE NEEDS APPROPRIATELY. PT HAS BEEN ASLEEP FOR MOST OF THE NIGHT. CHEST RISE/RESPIRATIONS NOTED. REMAINS AT BEDSIDE T/O THE NIGHT TO ASSIST W/ ADL'S. UP INTERMITTENTLY W/ SBA & FWW TO USE RESTROOM. TEGADERM ON RLE REMAINS CDI. BED RAILS UP X 2, BED WHEELS LOCKED, PERSONAL BELONGINGS AND CALL LIGHT WITHIN REACH FOR SAFETY.
[2025-10-25 07:12] LABS: BASOPHILS ABSOLUTE AUTO 0.12 K/mm3 (0.00-0.23); BASOPHILS PERCENT AUTO 1 % (0-2); EOSINOPHILS ABSOLUTE AUTO 0.46 K/mm3 (0.00-0.68); EOSINOPHILS PERCENT AUTO 4 % (0-6); Hematocrit 39.8 % (37.0-53.0); Hemoglobin 13.5 g/dL (13.5-17.5); IMMATURE GRAN ABSOLUTE AUTO 0.08 K/mm3 (0.00-0.10); IMMATURE GRAN PERCENT AUTO 1 % (0-1); LYMPHOCYTES ABSOLUTE AUTO 2.51 K/mm3 (0.84-5.20); LYMPHOCYTES PERCENT AUTO 19 % (21-46); MONOCYTES ABSOLUTE AUTO 0.89 K/mm3 (0.16-1.47); MONOCYTES PERCENT AUTO 7 % (4-13); Mean Corpuscular HGB Conc 33.9 g/dL (31.5-36.5); Mean Corpuscular Volume 93 fL (80-100); NEUTROPHILS ABSOLUTE AUTO 9.27 K/mm3 (1.96-9.15); NEUTROPHILS PERCENT AUTO 70 % (41-73); NRBC ABSOLUTE 0.00 K/mm3 (0.00-0.02); NRBC Auto 0.0 /100 WBC (0.0-0.2); Platelet Count 205 K/mm3 (150-400); RDW Coefficient Variation 12.8 % (11.7-14.2); RDW Standard Deviation 43.3 fL (35.1-46.3)
[2025-10-25 07:23] VITALS: BP 111/73
[2025-10-25 07:53] LABS: Alanine Aminotransfer (ALT/SGP 19.0 U/L (12-78); Albumin, Blood 3.2 g/dL (3.4-5.0); Albumin/Globulin Ratio 1.0 (0.8-1.8); Anion Gap 9.0 mmol/L (3-11); Aspartate Aminotrans (AST/SGOT 13.0 U/L (12-37); Bilirubin, Total 0.5 mg/dL (0.1-1.0); Blood Urea Nitrogen 30.0 mg/dL (8-24); CO2, Blood 25.0 mmol/L (21-32); Calcium, Blood 8.4 mg/dL (8.5-10.1); Chloride, Blood 108.0 mmol/L (98-108); Creatinine, Blood 1.42 mg/dL (0.60-1.20); Globulin, Blood 3.3 g/dL (2.2-4.0); Glucose, Blood 98.0 mg/dL (70-99); Potassium, Blood 4.0 mmol/L (3.5-5.5); Sodium, Blood 138.0 mmol/L (136-145); Total Protein, Blood 6.5 g/dL (6.4-8.2)
[2025-10-25] MEDS ORDERED: Enoxaparin 40 MG/0.4 ML SYR SC SCH (09:00)
[2025-10-25] MEDS ORDERED: CefTRIAXone Sodium 1,000 MG in NS 100 ML IV SCH (12:00)
[2025-10-25] MEDS ORDERED: NS 1,000 ML IV ONE (12:50)
[2025-10-25] MEDS ORDERED: LIDO700A20 TOP ×2 (14:35)
[2025-10-25] MEDS ORDERED: Cefpodoxime Pr100 MG PO ×2 (14:36)
--- NOTE | 2025-10-25 14:59 | NUR ---
PATIENT D/C'D TO HOME WITH . DC INSTRUCTIONS AND EDUCATION DICUSSED WITH PATIENT AND COPY PROVIDED. PATIENT DENIES ANY FURTHER QUESTIONS OR CONCERNS. RX MEDICATIONS FAXED TO [facility].
== END 2025-10-25 16:39 | disposition home or self-care (01) ==
LOC: MEDS 14:57
PROVIDERS: ADMIT Family Medicine
DX: A41.9 Sepsis, unspecified organism (principal); R65.20 Severe sepsis without septic shock; N39.0 Urinary tract infection, site not specified; I95.9 Hypotension, unspecified; E11.22 Type 2 diabetes mellitus with diabetic chronic kidney disease; N18.30 Chronic kidney disease, stage 3 unspecified; I42.0 Dilated cardiomyopathy; N41.0 Acute prostatitis
CPT/HCPCS: 36415; 80048; 80053; 82947; 83605; 85025; 87086; 96365; 96366; A9270; G0378; J0696; J1815; J7030

== ENCOUNTER → 2025-10-24 | Outpatient (CLI) | payer MEDICARE, OTHER ==
[~2025-10-24] MED LIST changes: +ASPI81CH PO; +Amlodipine Bes2.5 MG PO; +Bisoprolol Fumar5 MG PO; +Budeprion Xl300 MG PO; +CEFD300 PO; +CELE100 PO; +CLOBETASOL EMOL15 G1 TOP; +Cefpodoxime Pr100 MG PO; +ENTRESTO 24 MG1 EACH PO; +FINA5 PO; +FURO20 PO; +IBUP800 PO; +JARDIANCE10 MG PO; +LIDO700A20 TOP; +LOSA25 PO; +Lasix20 MG PO; +MELATONIN5 M1 PO; +TIZA4 PO; +TOPROL XL25 MG PO
[2025-10-24 13:26] LABS: BASOPHILS ABSOLUTE AUTO 0.09 K/mm3 (0.00-0.23); BASOPHILS PERCENT AUTO 1 % (0-2); EOSINOPHILS ABSOLUTE AUTO 0.45 K/mm3 (0.00-0.68); EOSINOPHILS PERCENT AUTO 3 % (0-6); Hematocrit 46.6 % (37.0-53.0); Hemoglobin 15.7 g/dL (13.5-17.5); IMMATURE GRAN ABSOLUTE AUTO 0.13 K/mm3 (0.00-0.10); IMMATURE GRAN PERCENT AUTO 1 % (0-1); LYMPHOCYTES ABSOLUTE AUTO 2.52 K/mm3 (0.84-5.20); LYMPHOCYTES PERCENT AUTO 17 % (21-46); MONOCYTES ABSOLUTE AUTO 0.98 K/mm3 (0.16-1.47); MONOCYTES PERCENT AUTO 7 % (4-13); Mean Corpuscular HGB Conc 33.7 g/dL (31.5-36.5); Mean Corpuscular Volume 93 fL (80-100); NEUTROPHILS ABSOLUTE AUTO 10.60 K/mm3 (1.96-9.15); NEUTROPHILS PERCENT AUTO 72 % (41-73); NRBC ABSOLUTE 0.00 K/mm3 (0.00-0.02); NRBC Auto 0.0 /100 WBC (0.0-0.2); Platelet Count 245 K/mm3 (150-400); RDW Coefficient Variation 12.9 % (11.7-14.2); RDW Standard Deviation 43.8 fL (35.1-46.3)
[2025-10-24 13:39] LABS: Alanine Aminotransfer (ALT/SGP 21.0 U/L (12-78); Albumin, Blood 3.9 g/dL (3.4-5.0); Albumin/Globulin Ratio 1.0 (0.8-1.8); Anion Gap 11.0 mmol/L (3-11); Aspartate Aminotrans (AST/SGOT 15.0 U/L (12-37); Bilirubin, Total 0.5 mg/dL (0.1-1.0); Blood Urea Nitrogen 36.0 mg/dL (8-24); CO2, Blood 31.0 mmol/L (21-32); Calcium, Blood 9.6 mg/dL (8.5-10.1); Chloride, Blood 102.0 mmol/L (98-108); Creatinine, Blood 1.89 mg/dL (0.60-1.20); Globulin, Blood 4.0 g/dL (2.2-4.0); Glucose, Blood 149.0 mg/dL (70-99); Potassium, Blood 4.9 mmol/L (3.5-5.5); Sodium, Blood 139.0 mmol/L (136-145); Total Protein, Blood 7.9 g/dL (6.4-8.2)
== END ==
LOC: LAB SHORT 12:59 → LAB 12:59
PROVIDERS: Physician Assistant
DX: N39.0 Urinary tract infection, site not specified (principal); I95.9 Hypotension, unspecified
CPT/HCPCS: 80053; 83605; 85025; 87086